=== PATIENT | male | born 1995 | race Caucasian/White ===

== ENCOUNTER 2019-09-06 11:00 | Emergency (ER) | payer OTHER, SELFPAY ==
[2019-09-06] VITALS (38 sets, daily range): BP systolic 110–141; BP diastolic 58–73; PULSE 59–74; RESP 16–18; TEMP 36.4–37; O2SAT 96–100
--- NOTE | 2019-09-06 11:09 | W.ED.GENAD ---
Discharge Plan Disposition Patient Disposition: HOME Condition: Improving Discharge Details Chief Complaint: Allergic Clinical Impression: Allergic reaction caused by a drug Primary Care Provider: Laura,[facility] ED Provider: Pratibha Guevara Home Meds and New Rx's Prescriptions: New azithromycin [Zithromax] 500 mg tablet 500 mg PO DAILY 5 Days Qty: 5 RF: 0 prednisone 20 mg tablet See Rx Instructions .ROUTE .COMPLEX Qty: 12 RF: 0 Continued penicillin V potassium 500 mg tablet 500 mg PO BID 10 Days Qty: 20 RF: 0 Discharge Instructions Instructions: General Allergic Reaction (ED) Additional Instructions: Take the steroids until finished. Take the first dose tomorrow. Take Benadryl as needed directed for itching. Drink plenty of fluids. Stop taking the penicillin and start taking the Zithromax today. Follow-up with your primary care doctor within 1 week. Return to the emergency department with any worsening or new concerning symptoms such as difficulty breathing or swallowing. Discharge Data Discharge Date/Time-TO BE ENTERED AT DEPARTURE: 09/06/19 14:40 Discharge Physician: Pratibha Guevara Medical Decision Making 1100 -- 24-year-old male presents with upper lip swelling since 3 AM. Patient states he has taken a total of 6 doses of penicillin for strep throat since Sunday. He states his last dose was last evening. He states 3 AM he awoke with upper lip swelling. Reviewed patient pictures of his lip swelling on his phone and it appears slightly improved compared to this morning. 1 dose of Benadryl prior to arrival. Denies any other new exposures. He has no complaint of throat swelling or itching, difficulty breathing, nausea or vomiting. His vitals are within normal limits. Do not see indication for epinephrine at this time. Will place an IV, Solu-Medrol, Pepcid, Benadryl, fluids and will reassess. 1150 --patient feels little better. Upper lip swelling minimally improved. Denies any other acute complaints. Will monitor for longer for more improvement. 1300 --no significant change in lip swelling since last assessment. Will give another liter fluids and give a tray of food to eat. Patient is agreeable with staying at this time. 1420 --patient feels better. He has improvement in lip swelling. Patient was able to eat food here and denies any other throat swelling or difficulty breathing. Vitals within normal limits. Patient appears nontoxic, texting on phone while in ED, airway intact. Patient advised to stop the penicillin. Will start Zithromax for his strep throat. Prescription for prednisone given. Advised to follow up with the primary care doctor for re-evaluation. Usual and customary return precautions given prior to discharge. Medical Records Medical records reviewed: Yes I reviewed the patient's medical records. HPI General Mode of arrival: ambulatory. Date/Time Provider Initiated Documentation: 09/06/19 11:01. Limitations to Documentation: no limitations. Information obtained by: patient. History of Present Illness 24 year old M presents to the emergency department with the chief complaint of upper lip swelling , Patient started experiencing this hour(s) (8 ) and it has been other (slightly improving). other things that improve symptom(s), (one dose of 25 mg benadryl) No exacerbating factors reported . Patient notes denies chest pain, cough, diaphoresis, fever/chills, headaches, loss of appetite, malaise, nausea/vomiting, rash, seizure, shortness of breath, syncope and weakness. Patient did receive the following treatments prior to arrival, other (one dose of 25mg benadryl) Related Data Home Medications Medication Instructions Recorded Confirmed penicillin V potassium 500 mg 500 mg PO BID 10 Days #20 tab 09/03/19 09/06/19 tablet azithromycin [Zithromax] 500 mg PO DAILY 5 Days #5 tab 09/06/19 prednisone See Rx Instructions .ROUTE 09/06/19 .COMPLEX #12 tab Previous Rx's Medication Instructions Recorded penicillin V potassium 500 mg 500 mg PO BID 10 Days #20 tab 09/03/19 tablet azithromycin [Zithromax] 500 mg PO DAILY 5 Days #5 tab 09/06/19 prednisone See Rx Instructions .ROUTE 09/06/19 .COMPLEX #12 tab Allergies Allergy/AdvReac Type Severity Reaction Status Date / Time Penicillins Allergy Swelling/Ed Unverified 09/06/19 11:07 momo General Stated Complaint: Allergic JODY: 3 Review of Systems All systems reviewed & are unremarkable except as noted in HPI and below Constitutional Constitutional: Reports as per HPI, Denies chills and Denies fever(s) Eyes Eyes: Denies blurry vision ENT Ears, Nose, Mouth, and Throat: Denies dizziness, Reports lip swelling, Denies sore throat and Denies throat swelling Cardiovascular Cardiovascular: Denies chest pain and Denies dyspnea Respiratory Respiratory: Denies cough and Denies dyspnea Gastrointestinal Gastrointestinal: Denies abdominal pain, Denies diarrhea and Denies vomiting Genitourinary Genitourinary: Denies hematuria and Denies dysuria Musculoskeletal Musculoskeletal: Denies back pain and Denies numbness Integumentary/Breasts Skin/Breast: Denies lesions and Denies rash Neurologic Neurologic: Denies dizziness, Denies focal weakness and Denies numbness Allergic/Immunologic Allergic/Immunologic: Reports lip swelling and Denies throat swelling [facility] Medical History No significant past medical history (Acute) Surgical History Arthroplasty of knee 8th grade- Left knee Miniscus Circumcision Tooth extraction [place] teeth removed- oral surgeon's office. Family History Mother No problems noted. Father No problems noted. Sister No problems noted. Other Neoplasm PGM- colon cancer; Social History Smoking/Tobacco Use Status: Never Alcohol Intake: current Alcohol Intake frequency: a few times a month Drug use: Never Substance use type: does not use Housing: apartment Exam Const General: cooperative and healthy appearing Orientation: alert and awake HENDC Head: normal to inspection Ears: hearing grossly normal bilaterally, external ears normal and TM's normal bilaterally General nose exam: external nose normal Face and sinus: normal facial exam Mouth: oral mucosae normal Teeth and gingiva: dentition normal Throat: uvula midline, posterior oropharynx abnormal edema (mild to moderate) and erythema; no exudates, uvular edema (mild to moderate) and other (uvular erythema) Eyes General: appearance normal, both eyes and all related structures Eyelids: eyelids normal Pupils: PERRL EOM: EOM intact bilaterally Neck Neck: normal visual inspection, full ROM, no lymphadenopathy, no meningeal signs, trachea midline, supple and No submandibular swelling Lymphatic: no lymphadenopathy noted Chest Chest: normal inspection of the chest Resp Effort & Inspection: normal respiratory effort and able to speak in complete sentences Auscultation: clear to auscultation bilaterally Cardio Rate: regular rate Rhythm: regular rhythm GI Inspection: normal to inspection Palpation: soft, not firm, no guarding, no hepatosplenomegaly, no masses and nontender Auscultation: normal bowel sounds Back/Spine/Pelvis Back: no CVA tenderness Skin General skin exam: no rashes or lesions noted Neuro General: alert and awake Cognition: normal cognition Speech: speech normal Gait: normal gait Motor: muscle tone normal throughout Sensory Exam: no sensory deficits noted Extrem General: normal to inspection, full ROM and normal capillary refill Psych Appearance: grossly normal Mental Status: mental status grossly normal Speech and Movement: speech and movement normal Affect: normal affect Thought Process: normal Course Vital Signs Vital signs: Vital Signs Temperature 97.5 F L 09/06/19 11:03 Pulse 74 09/06/19 11:03 Respiratory Rate 18 09/06/19 11:03 Blood Pressure 141/73 H 09/06/19 11:03 Pulse Oximetry 99 09/06/19 11:03 Temperature 97.5 F L 09/06/19 11:03 Temperature Source Skin 09/06/19 11:03 Pulse 74 09/06/19 11:03 Respiratory Rate 18 09/06/19 11:03 Respiratory Effort 09/06/19 11:07 Blood Pressure 141/73 H 09/06/19 11:03 Blood Pressure Position Sitting 09/06/19 11:03 Pulse Oximetry 99 09/06/19 11:03 Oxygen Delivery Method Room Air 09/06/19 11:03 Oxygen Flow Rate 0 09/06/19 11:03
[2019-09-06] MEDS: diphenhydrAMINE 50 MG/ML VIAL 25 MG IVP (11:14)
[2019-09-06] MEDS: FAMOTIDINE 20 MG/50 ML BAG 200 MG IVPB (11:15)
[2019-09-06] MEDS: methylPREDNISolone SUCC 125 MG VIAL IVP (11:15)
[2019-09-06] MEDS: Normal Saline Flush 10 ML SYR IVP (12:03)
[2019-09-06] MEDS: Normal Saline 1,000 ML 1000 ML IV ×2 (12:03→13:25)
== END 2019-09-06 14:40 | disposition home or self-care (01) ==
PROVIDERS: Emergency Provider Physician Assistant
DX: R22.0 Localized swelling, mass and lump, head (principal); T36.0X5A Adverse effect of penicillins, initial encounter
CPT/HCPCS: 96361; 96374; 96375; 99284; 99285; J1200; J2930

== ENCOUNTER 2020-02-05 18:52 | Outpatient (REF) | payer OTHER, SELFPAY ==
[2020-02-05 20:06] LABS: Calculated LDL 73 mg/dL (<100); Cholesterol 134 mg/dL (<200); HDL Cholesterol 51 mg/dL (40-60); Triglyceride 50 mg/dL (<150)
[2020-02-09 11:28] LABS: Syphilis Serology (RPR) Negative (Negative)
[2020-02-09 11:31] LABS: HIV-1/2 Ag & Ab Screen Negative (Negative)
[2020-02-09 15:12] LABS: Chlamydia Result Negative (Negative); GC Result Negative (Negative)
== END 2020-02-05 19:12 ==
LOC: LBN 18:52
PROVIDERS: PCP Nurse Practitioner; Visit Provider Nurse Practitioner
DX: Z13.6 Encounter for screening for cardiovascular disorders (principal); Z11.3 Encounter for screening for infections with a predominantly sexual mode of transmission; Z11.4 Encounter for screening for human immunodeficiency virus [HIV]
CPT/HCPCS: 80061; 87389; 87491; 87591; 86592